=== PATIENT | male | born 1950 | race Caucasian/White ===

== ENCOUNTER 2022-09-06 07:42 | Inpatient (IN) | payer MEDICARE, MEDICAID, SELFPAY ==
[2022-09-06] VITALS (9 sets, daily range): BP systolic 103–160; BP diastolic 64–81; PULSE 55–96; RESP 16–22; TEMP 36.6–37.8; O2SAT 90–96; BMI 27.5
--- NOTE | 2022-09-06 08:08 | PC.NURSE ---
alert to self. respirations equal but slightly labored with bilateral clear sounds.pt skins pink, warm and dry. pt had unwitnessed fall at home with unkown LOC, pt is reporting pain in his left leg.
--- NOTE | 2022-09-06 08:14 | ED.FALL ---
HPI - Fall General Chief Complaint: Fall Stated Complaint: Fall found on floor, SOB, AMS Time Seen by Provider: 09/06/22 08:08 Source: patient, EMS, RN notes reviewed and old records reviewed Mode of arrival: EMS History of Present Illness HPI Narrative: 71-year-old male with a past medical history of COPD, dementia, HLD, HTN, presenting to the ED via EMS for on unwitnessed fall at home. Per EMS patient was gasping for air on their arrival with reported dry cough. Patient guarding to LLE. Patient on ASA, no other listed anticoagulation. History limited due to patient's baseline dementia. Called family however unable to contact MD complaint: fall Related Data Home Medications Medication Instructions Recorded Confirmed amlodipine 5 mg tablet 5 mg PO DAILY 09/06/22 09/06/22 aspirin 81 mg tablet,delayed 81 mg PO DAILY 09/06/22 09/06/22 release atorvastatin 20 mg tablet 20 mg PO DAILY 09/06/22 09/06/22 cefpodoxime 200 mg tablet 200 mg PO BID 09/06/22 09/06/22 cholecalciferol (vitamin D3) 25 25 mcg PO DAILY 09/06/22 09/06/22 mcg (1,000 unit) tablet donepezil 10 mg tablet 10 mg PO BEDTIME 09/06/22 09/06/22 mirtazapine 30 mg tablet 30 mg PO BEDTIME 09/06/22 09/06/22 multivitamin 1 tab PO DAILY 09/06/22 09/06/22 quetiapine 50 mg tablet 50 mg PO TID@1100,1900,2300 09/06/22 09/06/22 vitamin B complex 1 cap PO DAILY 09/06/22 09/06/22 Allergies Allergy/AdvReac Type Severity Reaction Status Date / Time No Known Allergies Allergy Verified 09/06/22 08:31 Review of Systems Review of Systems: ROS limited due to patients baseline mental status Yes all other systems are reviewed and are negative Constitutional: Constitutional: Reports as per [facility] Past Medical History Attestation statement: The following information was validated with the patient. Source: old records reviewed Medical History COPD (chronic obstructive pulmonary disease) Dementia High cholesterol Hypertension Social History Social History Alcohol intake: unknown Use of substances other than those prescribed or required for medical reasons: Unable to respond Advance Directives: No Advance Directives Information Provided: Yes Physical Exam Vital Signs: Vital Signs: Last Vital Signs Temp 98.8 F 09/06/22 07:44 Pulse 91 09/06/22 11:09 Resp 22 H 09/06/22 11:09 BP 108/77 09/06/22 11:09 Pulse Ox 93 09/06/22 11:09 O2 Del Method Room Air 09/06/22 11:09 BMI result Body Mass Index 27.5 Const: General: cooperative, no acute distress and alert Limitations: no limitations HEENT: Head: Yes normal to inspection, Yes atraumatic, No Hooks's sign and No raccoon eyes Ears: hearing grossly normal bilaterally General nose exam: Normal external nose present Face and sinus: Yes normal facial exam Eyes: General: appearance normal, both eyes and all related structures Pupils: Equal, round and reactive pupils present EOM: EOMs intact bilaterally Neck: Neck: Yes normal visual inspection and Yes no meningeal signs Resp: Effort & Inspection: normal respiratory effort and no respiratory distress Auscultation: clear to auscultation bilaterally and no wheezes Cardio: Rate: regular rate Heart sounds: S1 normal heart sound present and S2 normal heart sound present GI: Inspection: Yes normal to inspection Palpation (GI): Soft to palpation, nontender, no guarding and not rigid Back/Spine/Pelvis: Other: No midline cervical/thoracic/lumbar spinous tenderness/step-off or deformity Skin: Rashes: no rashes Wounds: no wounds Neuro: General: tone normal and no meningeal signs Cranial nerves: Yes Equal, round and reactive pupils present Extrem: General: Yes normal to inspection Course Course Course Narrative: -939--Spoke w/son and (Paige-CHARLOTTE) admit at baseline patient can walk independently without assistance in the household. Patient was recently admitted to [facility] after fall onto left knee and noted to have UTI which required IV antibiotics. Son reports patient was agitated and restrained during hospital stay at [facility]. Was discharged on Monday 09/04 with Cefpodoxime which patient is still taking. Son states patient has been increasingly agitated, had unwitnessed fall on the floor off of couch this morning, was aided off the ground with son/mother, noted to be SOB/wheezing which prompted ED visit today. Son also reports patient had Schaeffer catheter at [facility] due to possible retention. -1107--no leukocytosis. H&H stable. Labs otherwise reassuring. Initial troponin 5.3 >will obtain [address] head/brain wo IV con IMPRESSION: Small petechial hemorrhage contusion high left frontal lobe. Generalized atrophy. Microangiopathy. >1109--will consult Neurology. Case discussed with Dr. Hairston recommended stopping ASA, and admission for observation CT cervical spine wo IV con IMPRESSION: No acute cervical spine fracture. Cervical spondylosis as described.? Fleischner guidelines were followed. XR knee LT 3V IMPRESSION: No significant bony abnormality of the left knee identified. Probable small suprapatellar effusion. XR hip BI w PEL1V IMPRESSION: RIGHT HIP: No acute abnormality. LEFT HIP: No acute abnormality. PELVIC BONE AND JOINTS: Unremarkable. Degenerative changes incidentally noted in the partially visualized lumbosacral spine. XR chest 1V IMPRESSION: Exam is limited as the patient could not be positioned for standard frontal projection. No definite acute abnormality consider follow-up radiograph if patient continues to be symptomatic and can tolerate standard positioning >1140--patient admitted to hospitalist for further management Medications Administered Discontinued Medications Generic Name Dose Route Start Last Admin Trade Name Freq PRN Reason Stop Dose Admin Albuterol/Ipratropium 3 ml 09/06/22 08:31 09/06/22 09:37 Albuterol/Iprat 2.5/0.5mg 3 Ml Ampul.Neb INHALE 09/06/22 08:32 3 ml ONCE ONE Administration Quetiapine Fumarate 25 mg 09/06/22 09:53 09/06/22 10:00 Quetiapine Fumarate 25 Mg Tablet PO 09/06/22 09:54 25 mg ONCE ONE Administration Medical Decision Making Medical Decision Making MDM Narrative: 71-year-old male with a past medical history of COPD, dementia, HLD, HTN, presenting to the ED via EMS for on unwitnessed fall at home. On exam sleeping comfortably, easily arousable, baseline dementia, satting 89-92% on RA, lungs CTA, no evidence of trauma, no midline spinous tenderness. Concern for mechanical fall vs ICH vs fracture vs metabolic or infectious etiology. Lower suspicion for CVA. Attempted to contact family for history however unsuccessful Plan: EKG, labs, UA, head/C-spine CT, x-rays, reassess Please refer to course for remaining clinical decision making, interpretation of labs/imaging results, and discussions with consultants and/or family members. Differential Diagnosis Differential Diagnoses: The differential diagnosis associated with the presentation includes As above Admission/Observation Consideration of admission/observation: Escalation of care including admission/observation considered Consult Healthcare Provider Management of the patient was discussed with: Hospitalist and [employer] (neurology) Lab Data MDM Lab Attestation statement: I reviewed the patient's lab results. 09/06/22 09:29 09/06/22 09:29 Labs: Lab Results 09/06/22 09/06/22 09/06/22 Range/Units 09:29 09:29 09:29 WBC 8.8 (4.8-10.8) X10*3/uL RBC 4.31 L (4.60-5.80) X10*6/uL Hgb 13.0 L (14.0-18.0) g/dl Hct 39.4 L (42.0-52.0) % MCV 91.4 (80.0-98.0) fL MCH 30.2 (27.0-33.0) pg MCHC 33.0 (31.0-36.0) g/dl RDW 13.3 (11.0-16.0) % Plt Count 236 (160-400) X10*3/uL MPV 9.7 (9.4-12.4) fL Immature Gran % (Auto) 0.7 H (0.0-0.4) % Neut % (Auto) 75.3 H (45-73) % Lymph % (Auto) 14.0 L (20-40) % Leake % (Auto) 6.6 (2-11) % Eos % (Auto) 2.8 (0-4) % Baso % (Auto) 0.6 (0-2) % Lymph # (Auto) 1.2 (1.2-4.9) X10*3/uL Leake # (Auto) 0.6 (0.1-1.2) X10*3/uL Eos # (Auto) 0.3 (0.0-0.4) X10*3/uL Baso # (Auto) 0.1 (0.0-0.2) X10*3/uL Abs Immat Gran (auto) 0.06 H (0.00-0.03) X10*3/uL Absolute Neuts (auto) 6.6 (2.0-8.3) x10*3/uL Absolute Nucleated RBC 0.000 (0.0-0.012) X10*3/uL Nucleated RBC % (auto) 0.0 (0.0-0.2) /100WBC PT 14.2 H (10.0-13.1) SEC INR 1.2 H (0.9-1.1) Sodium (135-145) mmol/L Potassium (3.3-5.1) mmol/L Chloride (96-108) mmol/L Carbon Dioxide (22-29) mmol/L Anion Gap (12-20) BUN (9-16) mg/dL Creatinine (0.5-1.4) mg/dL Estim Creat Clear Calc Estimated GFR Random Glucose (60-115) mg/dL Calcium (8.4-10.2) mg/dL Magnesium (1.6-2.6) mg/dL Total Bilirubin (0.0-1.0) mg/dL Direct Bilirubin (0.0-0.5) mg/dL AST (5-37) U/L ALT (0-40) U/L Alkaline Phosphatase (39-117) U/L Ammonia 25 (13-55) umol/L Troponin I High Sens (<3.5-35.0) ng/L B-Natriuretic Peptide (<100) pg/mL Total Protein (6.5-8.0) g/dL Albumin (3.5-5.0) g/dL Lipase (8-78) U/L COVID-19 ([facility]) (Negative) COVID-19 Clin Com 09/06/22 09/06/22 09/06/22 Range/Units 09:29 09:29 09:29 WBC (4.8-10.8) X10*3/uL RBC (4.60-5.80) X10*6/uL Hgb (14.0-18.0) g/dl Hct (42.0-52.0) % MCV (80.0-98.0) fL MCH (27.0-33.0) pg MCHC (31.0-36.0) g/dl RDW (11.0-16.0) % Plt Count (160-400) X10*3/uL MPV (9.4-12.4) fL Immature Gran % (Auto) (0.0-0.4) % Neut % (Auto) (45-73) % Lymph % (Auto) (20-40) % Leake % (Auto) (2-11) % Eos % (Auto) (0-4) % Baso % (Auto) (0-2) % Lymph # (Auto) (1.2-4.9) X10*3/uL Leake # (Auto) (0.1-1.2) X10*3/uL Eos # (Auto) (0.0-0.4) X10*3/uL Baso # (Auto) (0.0-0.2) X10*3/uL Abs Immat Gran (auto) (0.00-0.03) X10*3/uL Absolute Neuts (auto) (2.0-8.3) x10*3/uL Absolute Nucleated RBC (0.0-0.012) X10*3/uL Nucleated RBC % (auto) (0.0-0.2) /100WBC PT (10.0-13.1) SEC INR (0.9-1.1) Sodium 145 (135-145) mmol/L Potassium 3.9 (3.3-5.1) mmol/L Chloride 107 (96-108) mmol/L Carbon Dioxide 28 (22-29) mmol/L Anion Gap 14 (12-20) BUN 14 (9-16) mg/dL Creatinine 0.79 (0.5-1.4) mg/dL Estim Creat Clear Calc 84.2 Estimated GFR > 60 Random Glucose 90 (60-115) mg/dL Calcium 9.7 (8.4-10.2) mg/dL Magnesium 2.4 (1.6-2.6) mg/dL Total Bilirubin 0.4 (0.0-1.0) mg/dL Direct Bilirubin 0.1 (0.0-0.5) mg/dL AST 31 (5-37) U/L ALT 26 (0-40) U/L Alkaline Phosphatase 78 (39-117) U/L Ammonia (13-55) umol/L Troponin I High Sens 5.3 (<3.5-35.0) ng/L B-Natriuretic Peptide 13 (<100) pg/mL Total Protein 6.8 (6.5-8.0) g/dL Albumin 4.1 (3.5-5.0) g/dL Lipase 48 (8-78) U/L COVID-19 ([facility]) (Negative) COVID-19 Clin Com 09/06/22 Range/Units 09:29 WBC (4.8-10.8) X10*3/uL RBC (4.60-5.80) X10*6/uL Hgb (14.0-18.0) g/dl Hct (42.0-52.0) % MCV (80.0-98.0) fL MCH (27.0-33.0) pg MCHC (31.0-36.0) g/dl RDW (11.0-16.0) % Plt Count (160-400) X10*3/uL MPV (9.4-12.4) fL Immature Gran % (Auto) (0.0-0.4) % Neut % (Auto) (45-73) % Lymph % (Auto) (20-40) % Leake % (Auto) (2-11) % Eos % (Auto) (0-4) % Baso % (Auto) (0-2) % Lymph # (Auto) (1.2-4.9) X10*3/uL Leake # (Auto) (0.1-1.2) X10*3/uL Eos # (Auto) (0.0-0.4) X10*3/uL Baso # (Auto) (0.0-0.2) X10*3/uL Abs Immat Gran (auto) (0.00-0.03) X10*3/uL Absolute Neuts (auto) (2.0-8.3) x10*3/uL Absolute Nucleated RBC (0.0-0.012) X10*3/uL Nucleated RBC % (auto) (0.0-0.2) /100WBC PT (10.0-13.1) SEC INR (0.9-1.1) Sodium (135-145) mmol/L Potassium (3.3-5.1) mmol/L Chloride (96-108) mmol/L Carbon Dioxide (22-29) mmol/L Anion Gap (12-20) BUN (9-16) mg/dL Creatinine (0.5-1.4) mg/dL Estim Creat Clear Calc Estimated GFR Random Glucose (60-115) mg/dL Calcium (8.4-10.2) mg/dL Magnesium (1.6-2.6) mg/dL Total Bilirubin (0.0-1.0) mg/dL Direct Bilirubin (0.0-0.5) mg/dL AST (5-37) U/L ALT (0-40) U/L Alkaline Phosphatase (39-117) U/L Ammonia (13-55) umol/L Troponin I High Sens (<3.5-35.0) ng/L B-Natriuretic Peptide (<100) pg/mL Total Protein (6.5-8.0) g/dL Albumin (3.5-5.0) g/dL Lipase (8-78) U/L COVID-19 ([facility]) Negative (Negative) COVID-19 Clin Com See Note Independent Interpretation I performed an independent interpretation of an: EKG (EKG normal sinus rhythm with sinus arrhythmia and incomplete right bundle branch block. Rate of 72. QRS 102. Inverted T-wave in V1. No STEMI) and Plain X-Ray Radiology Impression Discussion of test interpretation with radiology: I have reviewed the radiologist's reading. Independent Historian Clinical information obtained from an independent historian. History obtained from or confirmed by: EMS and Other (son & ) External Record Review External record reviewed: Inpatient record, Office record, Outpatient record, Prior outpatient labs, Prior outpatient radiology, Primary care record and Outside ED record Tests considered The following testing was considered but not selected: As above Prescription Management I considered prescription management with: Pain Medication Chronic Conditions Patient?s care impacted by: Other (Dementia) Discharge Plan Discharge Clinical Impression: Focal hemorrhagic contusion of cerebrum, Fall, Alzheimer's dementia Patient Disposition: Admitted As Inpatient
--- NOTE | 2022-09-06 10:05 | PC.NURSE ---
pt has slight agitation so there is a delay with the ekg and urinalysis, pt has been medicated with his usual at home med.
--- NOTE | 2022-09-06 10:27 | PHA.MEDREC ---
Pharmacy Consult ? Medication Reconciliation Pharmacy has completed the medication reconciliation. Patient had a list at bedside
--- NOTE | 2022-09-06 10:53 | PC.NURSE ---
able to get bladder scan which showed 48ml, provider aware.
--- NOTE | 2022-09-06 11:59 | PC.NURSE ---
Straight cath done with 170ml with a large amount of incontinence. provider notified.
--- NOTE | 2022-09-06 13:37 | PM.IMHP ---
History of Present Illness Date of Service: 09/06/22 Attending physician on admission: Mateus Peoples Chief Complaint: fall 71-year-old male with a past medical history of COPD, Alzheimer's dementia, HLD, HTN, presenting to the ED via EMS for on unwitnessed fall at home. He lives at home with his , Paige, and son, Andrew who assist with his care. There is also a home health aide in the home who assists his life as well as the patient. This morning, his family reports that he was in the bathroom and they heard a loud sound as patient had fallen and called EMS. According to EMS report, the patient was gasping for air on arrival with reported dry cough and was guarding the left lower extremity. He is on aspirin but no anticoagulants. Per family, the patient was recently admitted to [facility] for UTI and treated with 5 days of IV antibiotics and was discharged 2 days ago on oral cefpodoxime. Did not receive dose this morning. Per the family report, the patient has had increased agitation over the last 2 months with question of acute delirium versus worsening Alzheimer's dementia. He did briefly improved with increased dose of Seroquel to 25 mg t.i.d. by his PCP but over the last 1.5 weeks has again had increased agitation and has not been able to ambulate independently which is his baseline. Per family he has been on wait list for [facility] memory unit since 11/27. They are willing to take him home if patient is ambulatory. On arrival, vital stable. There is no leukocytosis. H/H 13.0/39.4%. Renal function normal, electrolyte levels normal. Urinalysis was 1+ leukocytes, negative nitrites, negative blood, slight urinary sediment, negative bacteria. Negative for COVID-19. Chest x-ray without any definitive acute abnormality but limited exam given patient positioning. X-ray of the hip/pelvis without any acute abnormality but does show degenerative changes. X-ray of the left knee negative for acute abnormality. Cervical spine CT negative for any acute fracture subluxation which shows multilevel cervical spondylosis. Head CT shows small petechial hemorrhage contusion in the hive left frontal lobe as well as generalized atrophy and microangiopathy. ED did discuss case with Neurology recommending admission and holding aspirin. Review of Systems Review of Systems: Yes Unobtainable due to mental status PMF Medical History Alzheimer's dementia COPD (chronic obstructive pulmonary disease) High cholesterol Hypertension Social History Alcohol intake: unknown Use of substances other than those prescribed or required for medical reasons: Unable to respond Advance Directives: No Advance Directives Information Provided: Yes Meds Allergies Allergy/AdvReac Type Severity Reaction Status Date / Time No Known Allergies Allergy Verified 09/06/22 08:31 Active Medications: Current Medications Acetaminophen (Acetaminophen 325 Mg Tablet) 650 mg PO Q6H PRN PRN Reason: Pain, Mild (Pain Scale 1-3) Docusate Sodium (Docusate Sodium 100 Mg Capsule) 100 mg PO DAILY PRN PRN Reason: Constipation Ondansetron HCl (Ondansetron Hcl 4 Mg/2 Ml Vial) 4 mg IVPUSH Q8H PRN PRN Reason: Nausea and Vomiting Sodium Chloride (0.9 % Sodium Chloride Flush 3 Ml Syringe) 3 ml [facility] Medications Medication Instructions Recorded Confirmed Last Taken Type amlodipine 5 mg tablet 5 mg PO DAILY 09/06/22 09/06/22 Unknown History aspirin 81 mg tablet,delayed 81 mg PO DAILY 09/06/22 09/06/22 Unknown History release atorvastatin 20 mg tablet 20 mg PO DAILY 09/06/22 09/06/22 Unknown History cefpodoxime 200 mg tablet 200 mg PO BID 09/06/22 09/06/22 Unknown History cholecalciferol (vitamin D3) 25 25 mcg PO DAILY 09/06/22 09/06/22 Unknown History mcg (1,000 unit) tablet donepezil 10 mg tablet 10 mg PO BEDTIME 09/06/22 09/06/22 Unknown History mirtazapine 30 mg tablet 30 mg PO BEDTIME 09/06/22 09/06/22 Unknown History multivitamin 1 tab PO DAILY 09/06/22 09/06/22 Unknown History quetiapine 50 mg tablet 50 mg PO TID@1100,1900,2300 09/06/22 09/06/22 Unknown History vitamin B complex 1 cap PO DAILY 09/06/22 09/06/22 Unknown History Physical Exam Vital Signs and Narrative: Vital Signs: Last Vital Signs Temp 98.8 F 09/06/22 07:44 Pulse 91 09/06/22 11:09 Resp 22 H 09/06/22 11:09 BP 108/77 09/06/22 11:09 Pulse Ox 93 09/06/22 11:09 O2 Del Method Room Air 09/06/22 11:09 BMI result Body Mass Index 27.5 Constitutional - Awake and Alert, No apparent distress Eyes - PERRLA, EOMI Cardiovascular - S1S2, RRR, No edema Respiratory - Normal lung expansion, Normal respiratory effort, No respiratory distress, CTA bilaterally Gastrointestinal - NT / ND; +BS; No rebound or guarding Extremities - no calf tenderness bilaterally, no swelling. Nontender to palpation with appropriate passive ROM LE joints Skin - Warm/Dry Neurological - Alert & disoriented, speaking nonsensically, moving all extremities independently Results Labs 09/06/22 09:29 09/06/22 09:29 Labs: Laboratory Results - last 24 hr 09/06/22 09/06/22 09/06/22 09:29 09:29 09:29 MCV 91.4 MCH 30.2 MCHC 33.0 RDW 13.3 Plt Count 236 MPV 9.7 Immature Gran % (Auto) 0.7 H Neut % (Auto) 75.3 H Lymph % (Auto) 14.0 L Maverick % (Auto) 6.6 Eos % (Auto) 2.8 Baso % (Auto) 0.6 Lymph # (Auto) 1.2 Maverick # (Auto) 0.6 Eos # (Auto) 0.3 Baso # (Auto) 0.1 Abs Immat Gran (auto) 0.06 H Absolute Neuts (auto) 6.6 Absolute Nucleated RBC 0.000 Nucleated RBC % (auto) 0.0 PT 14.2 H INR 1.2 H Anion Gap Estim Creat Clear Calc Estimated GFR Random Glucose Calcium Magnesium Total Bilirubin Direct Bilirubin AST ALT Alkaline Phosphatase Ammonia 25 Troponin I High Sens B-Natriuretic Peptide Total Protein Albumin Lipase Urine Color Urine Appearance Urine pH Ur Specific Dawson Urine Protein Urine Glucose (UA) Urine Ketones Urine Blood Urine Nitrite Ur Leukocyte Esterase Urine RBC Urine WBC Ur Squamous Epith Cells Urine Bacteria Hyaline Casts COVID-19 ([facility]) COVID-19 Clin Com 09/06/22 09/06/22 09/06/22 09:29 09:29 09:29 MCV MCH MCHC RDW Plt Count MPV Immature Gran % (Auto) Neut % (Auto) Lymph % (Auto) Maverick % (Auto) Eos % (Auto) Baso % (Auto) Lymph # (Auto) Maverick # (Auto) Eos # (Auto) Baso # (Auto) Abs Immat Gran (auto) Absolute Neuts (auto) Absolute Nucleated RBC Nucleated RBC % (auto) PT INR Anion Gap 14 Estim Creat Clear Calc 84.2 Estimated GFR > 60 Random Glucose 90 Calcium 9.7 Magnesium 2.4 Total Bilirubin 0.4 Direct Bilirubin 0.1 AST 31 ALT 26 Alkaline Phosphatase 78 Ammonia Troponin I High Sens 5.3 B-Natriuretic Peptide 13 Total Protein 6.8 Albumin 4.1 Lipase 48 Urine Color Urine Appearance Urine pH Ur Specific Dawson Urine Protein Urine Glucose (UA) Urine Ketones Urine Blood Urine Nitrite Ur Leukocyte Esterase Urine RBC Urine WBC Ur Squamous Epith Cells Urine Bacteria Hyaline Casts COVID-19 ([facility]) COVID-19 Clin Com 09/06/22 09/06/22 09/06/22 09:29 11:59 12:57 MCV MCH MCHC RDW Plt Count MPV Immature Gran % (Auto) Neut % (Auto) Lymph % (Auto) Maverick % (Auto) Eos % (Auto) Baso % (Auto) Lymph # (Auto) Maverick # (Auto) Eos # (Auto) Baso # (Auto) Abs Immat Gran (auto) Absolute Neuts (auto) Absolute Nucleated RBC Nucleated RBC % (auto) PT INR Anion Gap Estim Creat Clear Calc Estimated GFR Random Glucose Calcium Magnesium Total Bilirubin Direct Bilirubin AST ALT Alkaline Phosphatase Ammonia Troponin I High Sens 6.3 B-Natriuretic Peptide Total Protein Albumin Lipase Urine Color Yellow Urine Appearance Clear Urine pH 7.0 Ur Specific Dawson 1.010 Urine Protein Negative Urine Glucose (UA) Negative Urine Ketones Negative Urine Blood Negative Urine Nitrite Negative Ur Leukocyte Esterase Small (1+) H Urine RBC 3-5 H Urine WBC 6-10 H Ur Squamous Epith Cells 3-5 Urine Bacteria None Seen Hyaline Casts 0-2 COVID-19 ([facility]) Negative COVID-19 Clin Com See Note Imaging Radiologist's Impressions: Impressions Chest X-Ray 09/06/22 08:51 IMPRESSION: Exam is limited as the patient could not be positioned for standard frontal projection. No definite acute abnormality consider follow-up radiograph if patient continues to be symptomatic and can tolerate standard positioning Hip/Pelvis X-Ray 09/06/22 08:51 IMPRESSION: RIGHT HIP: No acute abnormality. LEFT HIP: No acute abnormality. PELVIC BONE AND JOINTS: Unremarkable. Degenerative changes incidentally noted in the partially visualized lumbosacral spine. Knee X-Ray 09/06/22 08:51 IMPRESSION: No significant bony abnormality of the left knee identified. Probable small suprapatellar effusion. Cervical Spine CT 09/06/22 09:47 IMPRESSION: No acute cervical spine fracture. Cervical spondylosis as described. Fleischner guidelines were followed. Head CT 09/06/22 09:47 IMPRESSION: Small petechial hemorrhage contusion high left frontal lobe. Generalized atrophy. Microangiopathy. Assessment and Plan (1) Focal hemorrhagic contusion of cerebrum: Status: Acute (2) Fall: Status: Acute Plan 71-year-old male with a past medical history of COPD, Alzheimer's dementia, HLD, HTN admitted for further monitoring of petechial hemorrhage of the left high frontal lobe likely requiring placement. # acute petechial hemorrhage of the left high frontal lobe -hold aspirin -neurochecks q.2h -neurology consult -repeat head CT a.m. # unwitnessed fall -likely mechanical, but unclear -head injury as above, no loss of consciousness -imaging of the hips bilaterally, left knee negative for fracture, patient moving extremities independently - EKG reassuring. Renal function and electrolytes unremarkable, ongoing treatment for UTI, no evidence of further acute infection -monitor on telemetry -PT eval #Acute UTI -treated with iv abx x 5 days at [facility], discharged 09/04 -Continue oral abx x 5 days -UA appears reassruing, culture pending # COPD -no acute exacerbation -albuterol p.r.n. # hypertension -BP reasonably controlled -continue home meds # HLD -continue statin # Alzheimer's dementia -discussed baseline mentation with family. Has had increased agitation ongoing 2 months, question related to Alzheimer's versus infection -continue home meds -currently on wait list for [facility] memory unit DVT prophylaxis- SCPs Full code-discussed with family HCP- , Paige. SonAndrew ([phone]) Patient requires inpatient stay of at least 2 midnights for further monitoring of acute petechial hemorrhage of the left high frontal lobe following unwitnessed fall requiring serial neuro checks, repeat head CT, expert consultation and will likely need placement pending PT eval. Per family, they are agreeable to taking home gift ambulating independently but has been unable to do so x 1.5w. Time Spent With Patient Time: Total time managing care of this patient today ____ minutes. Quality Stroke Does the patient have a stroke diagnosis?: No VTE Prior VTE?: No VTE Risk Level:: Medical - moderate - high VTE Device Contraindication: N/A - Device Ordered VTE Drug Contraindication: Treatment Not Indicated
--- NOTE | 2022-09-06 14:25 | PC.NURSE ---
called [facility] for report awaiting a call back
--- NOTE | 2022-09-06 15:01 | PC.NURSE ---
report given to [facility] rn
[2022-09-07 03:57] VITALS: BP 154/69; PULSE 58; RESP 16; TEMP 36.8; O2SAT 94
--- NOTE | 2022-09-07 06:14 | PC.NURSE ---
pts heart rate dropping into 30's-40's bp-154/69 notified.
--- NOTE | 2022-09-07 06:37 | PM.EVENT ---
Event Note Date of Service: 09/07/22 Event Note: Patient noted to be bradycardic with a heart rate in the 30s and 40s, while sleeping. Asymptomatic. Not on any beta-blockers Time Spent With Patient Time: Total time managing care of this patient today ____ minutes.
[2022-09-07 07:42] VITALS: BP 138/68; PULSE 50; RESP 16; TEMP 36.5; O2SAT 93
[2022-09-07 07:46] LABS: MANUAL DIFF FLAG NO
[2022-09-07 07:51] LABS: Basophils Percent Auto 0.4 % (0-2); Eosinophils Absolute Auto 0.2 X10*3/uL (0.0-0.4); Eosinophils Percent Auto 2.9 % (0-4); Hemoglobin 12.2 g/dl (14.0-18.0); Imm Gran Abs Auto 0.05 X10*3/uL (0.00-0.03); Imm Gran Pct Auto 0.6 % (0.0-0.4); Lymphocytes Absolute Auto 1.4 X10*3/uL (1.2-4.9); Lymphocytes Percent Auto 17.8 % (20-40); Mean Corpuscular Hemoglobin 30.6 pg (27.0-33.0); Mean Corpuscular Volume 92.7 fL (80.0-98.0); Mean Platelet Volume 9.9 fL (9.4-12.4); Monocytes Absolute Auto 0.7 X10*3/uL (0.1-1.2); Monocytes Percent Auto 9.1 % (2-11); Neutrophils Absolute Auto 5.4 x10*3/uL (2.0-8.3); Neutrophils Percent Auto 69.2 % (45-73); Platelet Count 239 X10*3/uL (160-400); Red Blood Count 3.99 X10*6/uL (4.60-5.80); Red Cell Distribution Width 13.3 % (11.0-16.0); White Blood Count 7.9 X10*3/uL (4.8-10.8)
[2022-09-07 08:09] LABS: Anion Gap 13 (12-20); Blood Urea Nitrogen 15 mg/dL (9-16); Calcium 9.5 mg/dL (8.4-10.2); Carbon Dioxide 29 mmol/L (22-29); Chloride 106 mmol/L (96-108); Creatinine Clr Calc Pharmacy 84.2; Estimated Glomerular Filt Rate > 60; Glucose Random 95 mg/dL (60-115); Potassium 3.8 mmol/L (3.3-5.1); Sodium 144 mmol/L (135-145)
--- NOTE | 2022-09-07 09:34 | MHC.CM.PN ---
Addendum entered by Nicolette Louis 09/07/22 09:45: HCP/SPOUSE ADAM CELL PHONE: [phone] Original Note: IMM EXPLAINED TO SON GERTRUDIS VIA TELEPHONE. HE REQUESTS WHITE COPY TO BE MAILED TO HIS HOME. YELLOW COPY PLACED IN CHART. PT LIVES WITH SPOUSE IN SON'S HOME. /SON CAREGIVERS WITH PRIVATE PA[employer] 4 HOURS/DAY/6 DAYS[facility]PER SON, PT IS ON A WAITING LIST FOR [facility]. HE IS FOLLOWED BY [facility] ON AN OP BASIS (DR. BATRES [phone]) PT WAS AMBULATING INDEP UNTIL 2 WEEKS AGO (HOSPITALIZED WITH UTI AT [facility]) SON AND NOW ASSIST. PER SON, HE HAS SUNDOWNING FROM ABOUT 3 PM TO 8 PM. + HCP, SON WILL BRING IN COPY + GRAHAM VAX X [address] PETERS AT [facility]. MAY NEED PLACEMENT PENDING P.T. EVAL FIRST CHOICE IS [facility]. IF DOES NOT GO TO SNF, SON IS ABLE TO TRANSPORT HOME. CM WILL CONTINUE TO FOLLOW FOR ANY CHANGE IN DC PLAN/NEEDS
[2022-09-07 12:00] VITALS: BP 126/79; PULSE 50; RESP 18; TEMP 36.6; O2SAT 94
--- NOTE | 2022-09-07 14:32 | HO.PM.IMPN ---
Subjective Subjective Date of Service: 09/07/22 Interval History: remains confused and agitated. Unable to do CT Review of Systems unable to obtain Physical Exam Vital Signs: Vital Signs: Last Vital Signs Temp 97.8 F 09/07/22 12:00 Pulse 50 09/07/22 12:00 Resp 18 09/07/22 12:00 BP 126/79 09/07/22 12:00 Pulse Ox 94 09/07/22 12:00 O2 Del Method Room Air 09/07/22 12:00 BMI result Body Mass Index 27.5 Const: Other: awake confused Resp: Other: clear to auscultation bilaterally no rales rhonchi or wheezes Cardio: Other: no S4; positive S1-S2; no S3 murmurs rubs or gallops GI: Other: soft nontender nondistended normoactive bowel sounds Extrem: Other: no edema bilaterally Objective Data Active Medications Acetaminophen (Acetaminophen 325 Mg Tablet) 650 mg PO Q6H PRN PRN Reason: Pain, Mild (Pain Scale 1-3) Amlodipine Besylate (Amlodipine Besylate 5 Mg Tablet) 5 mg PO DAILY [facility]; Protocol Last Admin: 09/07/22 08:59 Dose: 5 mg Documented By: DEANDRE Atorvastatin Calcium (Atorvastatin Calcium 20 Mg Tablet) 20 mg PO DAILY [facility] Last Admin: 09/07/22 08:59 Dose: 20 mg Documented By: DEANDRE Cefuroxime Axetil (Cefuroxime Axetil 250 Mg Tablet) 250 mg PO BID [facility] Stop: 09/10/22 21:01 Last Admin: 09/07/22 08:59 Dose: 250 mg Documented By: DEANDRE Docusate Sodium (Docusate Sodium 100 Mg Capsule) 100 mg PO DAILY PRN PRN Reason: Constipation Donepezil HCl (Donepezil Hcl 10 Mg Tablet) 10 mg PO BEDTIME [facility] Last Admin: 09/06/22 20:36 Dose: 10 mg Documented By: MUSTAPHA Mirtazapine (Mirtazapine 30 Mg Tablet) 30 mg PO BEDTIME [facility] Last Admin: 09/06/22 20:36 Dose: 30 mg Documented By: MUSTAPHA Multivitamins/Vitamin C (Multivitamin Tablet) 1 tab PO DAILY [facility] Last Admin: 09/07/22 08:59 Dose: 1 tab Documented By: DEANDRE Ondansetron HCl (Ondansetron Hcl 4 Mg/2 Ml Vial) 4 mg IVPUSH Q8H PRN PRN Reason: Nausea and Vomiting Quetiapine Fumarate (Quetiapine Fumarate 50 Mg Tablet) 50 mg PO TID@1100,1900,2300 [facility] Last Admin: 09/07/22 11:24 Dose: 50 mg Documented By: DEANDRE Sodium Chloride (0.9 % Sodium Chloride Flush 3 Ml Syringe) 3 ml IVFLUSH QSHIFT [facility] Last Admin: 09/07/22 08:59 Dose: 3 ml Documented By: DEANDRE Vitamin D (Cholecalciferol (Vitamin D3) 25 Mcg Tablet) 25 mcg PO DAILY [facility] Last Admin: 09/07/22 08:59 Dose: 25 mcg Documented By: DEANDRE Labs 09/07/22 07:42 09/07/22 07:42 Labs: Laboratory Results - last 24 hr 09/07/22 09/07/22 09/07/22 07:42 07:42 07:42 MCV 92.7 MCH 30.6 MCHC 33.0 RDW 13.3 Plt Count 239 MPV 9.9 Immature Gran % (Auto) 0.6 H Neut % (Auto) 69.2 Lymph % (Auto) 17.8 L [place] % (Auto) 9.1 Eos % (Auto) 2.9 Baso % (Auto) 0.4 Lymph # (Auto) 1.4 [place] # (Auto) 0.7 Eos # (Auto) 0.2 Baso # (Auto) 0.0 Abs Immat Gran (auto) 0.05 H Absolute Neuts (auto) 5.4 Absolute Nucleated RBC 0.000 Nucleated RBC % (auto) 0.0 Anion Gap 13 Estim Creat Clear Calc 84.2 Estimated GFR > 60 Random Glucose 95 Calcium 9.5 TSH 2.06 Microbiology Microbiology Results: Microbiology 09/06/22 Unknown Urine Culture - Preliminary Urine Catheterized - Straight Catheter No growth to date. Assessment and Plan (1) Focal hemorrhagic contusion of cerebrum: Status: Acute (2) Alzheimer's dementia: Status: Acute (3) COPD (chronic obstructive pulmonary disease): Status: Acute Plan 71-year-old male with a past medical history of COPD, Alzheimer's dementia, HLD, HTN admitted for further monitoring of petechial hemorrhage of the left high frontal lobe likely requiring placement. 1.Acute petechial hemorrhage of the left high frontal lobe -hold aspirin -neurology consult... Await input - unable to repeat head CT secondary to behavior.. 2.Acute UTI -treated with iv abx x 5 days at [facility], discharged 09/04 -Continue oral abx x 5 days -culture pending 3.COPD -no acute exacerbation -albuterol p.r.n. 4.Hypertension - acceptable control on current therapies - adjust as indicated 5.Alzheimer's dementia - likely natural progression of disease -continue home meds -currently on wait list for [facility] memory unit SCPs full code HCP- , Paige. Son, Andrew ([phone]) patient requires ongoing hospitalization to fully evaluate petechial hemorrhages a left frontal lobe Time Spent With Patient Time: Total time managing care of this patient today ____ minutes. Quality Stroke Does the patient have a stroke diagnosis?: No VTE Prior VTE?: No VTE Risk Level:: Medical - moderate - high VTE Device Contraindication: N/A - Device Ordered VTE Drug Contraindication: Treatment Not Indicated
[2022-09-07 15:28] VITALS: BP 115/67; PULSE 51; RESP 20; TEMP 36.1; O2SAT 96
[2022-09-07 19:18] VITALS: BP 129/58; PULSE 80; RESP 17; TEMP 36.9; O2SAT 95
[2022-09-07 23:13] VITALS: BP 100/53; PULSE 55; RESP 17; TEMP 36.4; O2SAT 95
[2022-09-08 03:20] VITALS: PULSE 75; RESP 16; TEMP 36.8; O2SAT 95
[2022-09-08 07:20] VITALS: BP 145/73; PULSE 70; RESP 18; TEMP 36.7; O2SAT 94
--- NOTE | 2022-09-08 09:27 | PM.NEUROCN ---
History of Present Illness Data of Consult Service Date: 09/08/22 Primary Care Provider: Unknown Physician HPI Reason for consult: Intracerebral hemorrhage 71 years old man with dementia living at home with his family apparently had a fall and was brought to hospital. There was no witnessing of any convulsion. His initial head CT revealed a small left frontal hyperdensity suggestive of intracerebral hemorrhage and he was admitted hospital. He was unable to provide any meaningful history per Review of Systems Review of Systems: Could not be done with him PMFSH Past Medical History Medical History (Updated 09/07/22 @ 14:38 by Mateus Peoples DO) Alzheimer's dementia COPD (chronic obstructive pulmonary disease) High cholesterol Hypertension Social History Social History Household Members: Family Unable to assess alcohol history related to: Unknown Alcohol intake: unknown Patient Tobacco Use Status: Tobacco use Unknown service: No Meds Allergies Allergy/AdvReac Type Severity Reaction Status Date / Time No Known Allergies Allergy Verified 09/06/22 08:31 Active Medications: Current Medications Acetaminophen (Acetaminophen 325 Mg Tablet) 650 mg PO Q6H PRN PRN Reason: Pain, Mild (Pain Scale 1-3) Last Admin: 09/08/22 02:40 Dose: 650 mg Amlodipine Besylate (Amlodipine Besylate 5 Mg Tablet) 5 mg PO DAILY [facility]; Protocol Last Admin: 09/08/22 08:59 Dose: 5 mg Atorvastatin Calcium (Atorvastatin Calcium 20 Mg Tablet) 20 mg PO DAILY [facility] Last Admin: 09/08/22 08:59 Dose: 20 mg Cefuroxime Axetil (Cefuroxime Axetil 250 Mg Tablet) 250 mg PO BID [facility] Stop: 09/10/22 21:01 Last Admin: 09/08/22 08:58 Dose: 250 mg Docusate Sodium (Docusate Sodium 100 Mg Capsule) 100 mg PO DAILY PRN PRN Reason: Constipation Donepezil HCl (Donepezil Hcl 10 Mg Tablet) 10 mg PO BEDTIME [facility] Last Admin: 09/07/22 20:29 Dose: 10 mg Mirtazapine (Mirtazapine 30 Mg Tablet) 30 mg PO BEDTIME [facility] Last Admin: 09/07/22 20:29 Dose: 30 mg Multivitamins/Vitamin C (Multivitamin Tablet) 1 tab PO DAILY [facility] Last Admin: 09/08/22 08:59 Dose: 1 tab Ondansetron HCl (Ondansetron Hcl 4 Mg/2 Ml Vial) 4 mg IVPUSH Q8H PRN PRN Reason: Nausea and Vomiting Quetiapine Fumarate (Quetiapine Fumarate 50 Mg Tablet) 50 mg PO TID@1100,1900,2300 [facility] Last Admin: 09/08/22 00:52 Dose: Not Given Sodium Chloride (0.9 % Sodium Chloride Flush 3 Ml Syringe) 3 ml IVFLUSH QSHIFT [facility] Last Admin: 09/08/22 08:54 Dose: Not Given Vitamin D (Cholecalciferol (Vitamin D3) 25 Mcg Tablet) 25 mcg PO DAILY [facility] Last Admin: 09/08/22 08:59 Dose: 25 mcg Home Medications Medication Instructions Recorded Confirmed Last Taken Type amlodipine 5 mg tablet 5 mg PO DAILY 09/06/22 09/06/22 Unknown History aspirin 81 mg tablet,delayed 81 mg PO DAILY 09/06/22 09/06/22 Unknown History release atorvastatin 20 mg tablet 20 mg PO DAILY 09/06/22 09/06/22 Unknown History cefpodoxime 200 mg tablet 200 mg PO BID 09/06/22 09/06/22 Unknown History cholecalciferol (vitamin D3) 25 25 mcg PO DAILY 09/06/22 09/06/22 Unknown History mcg (1,000 unit) tablet donepezil 10 mg tablet 10 mg PO BEDTIME 09/06/22 09/06/22 Unknown History mirtazapine 30 mg tablet 30 mg PO BEDTIME 09/06/22 09/06/22 Unknown History multivitamin 1 tab PO DAILY 09/06/22 09/06/22 Unknown History quetiapine 50 mg tablet 50 mg PO TID@1100,1900,2300 09/06/22 09/06/22 Unknown History vitamin B complex 1 cap PO DAILY 09/06/22 09/06/22 Unknown History Physical Exam Vital Signs: Vital Signs: Last Vital Signs Temp 98.1 F 09/08/22 07:20 Pulse 70 09/08/22 07:20 Resp 18 09/08/22 07:20 BP 145/73 H 09/08/22 07:20 Pulse Ox 94 09/08/22 07:20 O2 Del Method Room Air 09/08/22 07:20 BMI result Body Mass Index 27.5 Neuro: Other: Alert and awake talking to himself not comprehending and not following commands. Mild frontal reflexes including grasp and snout were noted. He was sitting with his body flexed down and using his hands to cover his mouth. He did not follow any commands. Results Labs 09/07/22 07:42 09/07/22 07:42 Labs: Head CT reveals severe cerebral atrophy and a small left frontal hyperdensity probably from contusion. Microbiology Microbiology Results: Microbiology 09/06/22 Unknown Urine Catheterized - Straight Catheter Urine Culture - Preliminary No growth to date. Assessment and Plan (1) Focal hemorrhagic contusion of cerebrum: Status: Acute 71 years old man with severe underlying dementia probably had a fall and a small left frontal contusion with no complication of seizure. No further intervention is needed. I recommend talking to the family and providing them realistic expectations from any illness he might suffered from. Because of severe nature of degenerative dementia, almost no intervention could be offered even if he had an indication such as intracerebral hemorrhage. Comfort measures are recommended Time Spent With Patient Time: Total time managing care of this patient today ____ minutes. Procedures Date of Service Date of Service: 09/08/22
--- NOTE | 2022-09-08 10:16 | HO.PM.IMPN ---
Subjective Subjective Date of Service: 09/08/22 Interval History: Unable to obtain meaningful history due to advanced dementia, no acute issues overnight. Review of Systems Unable to obtain due to dementia. Physical Exam Vital Signs: Vital Signs: Last Vital Signs Temp 98.1 F 09/08/22 07:20 Pulse 70 09/08/22 07:20 Resp 18 09/08/22 07:20 BP 145/73 H 09/08/22 07:20 Pulse Ox 94 09/08/22 07:20 O2 Del Method Room Air 09/08/22 07:20 BMI result Body Mass Index 27.5 Const: Other: Constitutional - r esting in bed in n o distress Anicter ic sclera Cardiova scular - regular r ate rhythm Respira tory - clear to au scultation bilater ally, no wheeze, n o crackles Gastroi ntestinal - abdome n soft nontender b owel sounds audibl e Extremities - no swelling. Skin - Warm/Dry Neurolo gical - Alert & di soriented, speakin g nonsensically, m oving all extremit ies Objective Data Active Medications Acetaminophen (Acetaminophen 325 Mg Tablet) 650 mg PO Q6H PRN PRN Reason: Pain, Mild (Pain Scale 1-3) Last Admin: 09/08/22 02:40 Dose: 650 mg Documented By: BOO Amlodipine Besylate (Amlodipine Besylate 5 Mg Tablet) 5 mg PO DAILY [facility]; Protocol Last Admin: 09/08/22 08:59 Dose: 5 mg Documented By: DEANDRE Atorvastatin Calcium (Atorvastatin Calcium 20 Mg Tablet) 20 mg PO DAILY [facility] Last Admin: 09/08/22 08:59 Dose: 20 mg Documented By: DEANDRE Cefuroxime Axetil (Cefuroxime Axetil 250 Mg Tablet) 250 mg PO BID [facility] Stop: 09/10/22 21:01 Last Admin: 09/08/22 08:58 Dose: 250 mg Documented By: DEANDRE Docusate Sodium (Docusate Sodium 100 Mg Capsule) 100 mg PO DAILY PRN PRN Reason: Constipation Donepezil HCl (Donepezil Hcl 10 Mg Tablet) 10 mg PO BEDTIME [facility] Last Admin: 09/07/22 20:29 Dose: 10 mg Documented By: BOO Mirtazapine (Mirtazapine 30 Mg Tablet) 30 mg PO BEDTIME [facility] Last Admin: 09/07/22 20:29 Dose: 30 mg Documented By: BOO Multivitamins/Vitamin C (Multivitamin Tablet) 1 tab PO DAILY [facility] Last Admin: 09/08/22 08:59 Dose: 1 tab Documented By: DEANDRE Ondansetron HCl (Ondansetron Hcl 4 Mg/2 Ml Vial) 4 mg IVPUSH Q8H PRN PRN Reason: Nausea and Vomiting Quetiapine Fumarate (Quetiapine Fumarate 50 Mg Tablet) 50 mg PO TID@1100,1900,2300 [facility] Last Admin: 09/08/22 00:52 Dose: Not Given Documented By: BOO Non-Admin Reason: Patient Asleep Sodium Chloride (0.9 % Sodium Chloride Flush 3 Ml Syringe) 3 ml IVFLUSH QSHIFT [facility] Last Admin: 09/08/22 08:54 Dose: Not Given Documented By: DEANDRE Non-Admin Reason: No Access Vitamin D (Cholecalciferol (Vitamin D3) 25 Mcg Tablet) 25 mcg PO DAILY [facility] Last Admin: 09/08/22 08:59 Dose: 25 mcg Documented By: DEANDRE Labs 09/07/22 07:42 09/07/22 07:42 Microbiology Microbiology Results: Microbiology 09/06/22 Unknown Urine Culture - Final Urine Catheterized - Straight Catheter No growth. Assessment and Plan (1) Focal hemorrhagic contusion of cerebrum: Status: Acute Plan 71-year-old male with a past medical history of COPD, Alzheimer's dementia, HLD, HTN admitted for further monitoring of petechial hemorrhage of the left high frontal lobe likely requiring placement. 1.Acute small left frontal hemorrhagic contusion/focal hemorrhagic confusion of cerebrum Likely due to fall, repeat CT head was attempted but patient unable tolerate the procedure despite Haldol and Ativan -seen by Neurology they recommend no further intervention , continue to hold aspirin x1 week Spoke with patient's son Andrew as well as patient Paige mora they both agreed for DNR DNI will change code status to DNR DNI 2.Acute UTI -treated with iv abx x 5 days at [facility], discharged 09/04 -Continue Ceftin 250 mg b.i.d.x day 2/5 days -urine culture neg 3.COPD -no acute exacerbation -albuterol p.r.n. 4.Hypertension - acceptable control on current therapies - adjust as indicated 5.Alzheimer's dementia - likely natural progression of disease -continue home meds -currently on wait list for [facility] memory unit SCPs HCP- , Paige. Andrew Pennington ([phone]) ?patient requires ongoing hospitalization for safe placement. Time Spent With Patient Time: Total time managing care of this patient today ____ minutes. Quality Stroke Does the patient have a stroke diagnosis?: No VTE Prior VTE?: No VTE Risk Level:: Medical - moderate - high VTE Device Contraindication: N/A - Device Ordered VTE Drug Contraindication: Treatment Not Indicated
[2022-09-08 11:22] VITALS: BP 132/79; PULSE 67; RESP 18; TEMP 36.6; O2SAT 94
[2022-09-08 15:55] VITALS: BP 125/91; PULSE 86; RESP 18; TEMP 37.1; O2SAT 94
[2022-09-08 19:25] VITALS: BP 138/84; PULSE 88; RESP 18; TEMP 37.3; O2SAT 93
[2022-09-09] VITALS (7 sets, daily range): BP systolic 118–143; BP diastolic 51–74; PULSE 62–76; RESP 15–20; TEMP 36.2–37.1; O2SAT 92–96
--- NOTE | 2022-09-09 10:26 | HO.PM.IMPN ---
Subjective Subjective Date of Service: 09/09/22 Interval History: confused Physical Exam Vital Signs: Vital Signs: Last Vital Signs Temp 97.8 F 09/09/22 08:00 Pulse 65 09/09/22 08:00 Resp 18 09/09/22 08:00 BP 143/71 H 09/09/22 08:00 Pulse Ox 94 09/09/22 08:00 O2 Del Method Room Air 09/09/22 08:00 BMI result Body Mass Index 27.5 Const: Other: Constitutional - r esting in bed in n o distress Anicter ic sclera Cardiova scular - regular r ate rhythm Respira tory - clear to au scultation bilater ally, no wheeze, n o crackles Gastroi ntestinal - abdome n soft nontender b owel sounds audibl e Extremities - no swelling. Skin - Warm/Dry Neurolo gical - Alert & di soriented, speakin g nonsensically, m oving all extremit ies Objective Data Active Medications Acetaminophen (Acetaminophen 325 Mg Tablet) 650 mg PO Q6H PRN PRN Reason: Pain, Mild (Pain Scale 1-3) Last Admin: 09/08/22 02:40 Dose: 650 mg Documented By: BOO Amlodipine Besylate (Amlodipine Besylate 5 Mg Tablet) 5 mg PO DAILY [facility]; Protocol Last Admin: 09/09/22 09:34 Dose: 5 mg Documented By: ESTHER Atorvastatin Calcium (Atorvastatin Calcium 20 Mg Tablet) 20 mg PO DAILY [facility] Last Admin: 09/09/22 09:34 Dose: 20 mg Documented By: ESTHER Cefuroxime Axetil (Cefuroxime Axetil 250 Mg Tablet) 250 mg PO BID [facility] Stop: 09/10/22 21:01 Last Admin: 09/09/22 09:34 Dose: 250 mg Documented By: ESTHER Docusate Sodium (Docusate Sodium 100 Mg Capsule) 100 mg PO DAILY PRN PRN Reason: Constipation Donepezil HCl (Donepezil Hcl 10 Mg Tablet) 10 mg PO BEDTIME [facility] Last Admin: 09/08/22 22:02 Dose: 10 mg Documented By: LAQUITA Mirtazapine (Mirtazapine 30 Mg Tablet) 30 mg PO BEDTIME [facility] Last Admin: 09/08/22 22:02 Dose: 30 mg Documented By: LAQUITA Multivitamins/Vitamin C (Multivitamin Tablet) 1 tab PO DAILY [facility] Last Admin: 09/09/22 09:34 Dose: 1 tab Documented By: ESTHER Ondansetron HCl (Ondansetron Hcl 4 Mg/2 Ml Vial) 4 mg IVPUSH Q8H PRN PRN Reason: Nausea and Vomiting Quetiapine Fumarate (Quetiapine Fumarate 50 Mg Tablet) 50 mg PO TID@1100,1900,2300 [facility] Last Admin: 09/09/22 09:37 Dose: 50 mg Documented By: ESTHER Sodium Chloride (0.9 % Sodium Chloride Flush 3 Ml Syringe) 3 ml IVFLUSH QSHIFT [facility] Last Admin: 09/09/22 09:35 Dose: 3 ml Documented By: ESTHER Vitamin D (Cholecalciferol (Vitamin D3) 25 Mcg Tablet) 25 mcg PO DAILY [facility] Last Admin: 09/09/22 09:34 Dose: 25 mcg Documented By: ESTHER Labs 09/07/22 07:42 09/07/22 07:42 Microbiology Microbiology Results: Microbiology 09/06/22 Unknown Urine Culture - Final Urine Catheterized - Straight Catheter No growth. Assessment and Plan (1) Focal hemorrhagic contusion of cerebrum: Status: Acute Plan 71-year-old male with a past medical history of COPD, Alzheimer's dementia, HLD, HTN, presented with fall admitted for further monitoring of petechial hemorrhage of the left high frontal lobe likely requiring placement. Acute small left frontal hemorrhagic contusion/focal hemorrhagic confusion of cerebrum Likely due to fall, repeat CT head was attempted but patient unable tolerate the procedure despite Haldol and Ativan seen by Neurology they recommend no further intervention , continue to hold aspirin x1 week Spoke with patient's son Andrew as well as patient Paige mora they both agreed for DNR DNI will change code status to DNR DNI Acute UTI treated with iv abx x 5 days at [facility], discharged 09/04 Continue Ceftin 250 mg b.i.d.x day 3/5 days urine culture neg COPD no acute exacerbation albuterol p.r.n. Hypertension amlodipine Alzheimer's dementia likely natural progression of disease continue aricept currently on wait list for [facility] unit SCPs HCP- , Paige. SonAndrew ([phone]) ?patient requires ongoing hospitalization for safe placement. Time Spent With Patient Time: Total time managing care of this patient today ____ minutes. Quality Stroke Does the patient have a stroke diagnosis?: No VTE Prior VTE?: No VTE Risk Level:: Medical - moderate - high VTE Device Contraindication: N/A - Device Ordered VTE Drug Contraindication: Treatment Not Indicated
--- NOTE | 2022-09-09 13:16 | MHC.CM.PN ---
Addendum entered by Laila Montana RN 09/09/22 14:11: CM RECEIVED BED OFFER FROM [facility], CM CONTACTED SON GERTRUDIS AT PT'S NUMBER AND GERTRUDIS REPORTS THEY HAD PREVIOUSLY TOURED [facility] AND WOULD LIKE TO ACCEPT BED OFFER, SNF UPDATED AND ANTIC D/C TOMORROW 09/10 AT 10AM VIA BLS. Original Note: EMR REVIEWED, CM ATTEMPTED TO CONTACT PT'S AT 1:05PM AT NUMBER ON FILE TO DISCUSS DISPO, O ANSWER AND DETAILED MESSAGE LEFT, PT ON WAIT LIST FOR [facility] HOWEVER THEY ARE UNABLE TO TAKE PT STR W/TRANSITION TO LTC, REFERRAL HAS BEEN EXPANDED AND CM CURRENTLY AWAITING BED OFFER, CM WILL CONT TO FOLLOW D/C NEEDS.
[2022-09-10 03:11] VITALS: BP 126/72; PULSE 54; RESP 15; TEMP 36.1; O2SAT 93
[2022-09-10 08:00] VITALS: BP 123/87; PULSE 76; RESP 20; TEMP 36.6; O2SAT 92
--- NOTE | 2022-09-10 08:40 | PM.DS ---
DS: Providers Provider Date of Service: 09/10/22 Date of admission: 09/06/22 13:31 Primary care physician: Chelsea Gonzalez MD Consults: 09/06/22 13:31 Consult to Neurology Routine Consulting Provider: [facility] Reason for consultation: Petechial hemorrhage frontal lobe DS: Diagnosis Discharge Diagnosis (1) Focal hemorrhagic contusion of cerebrum: Status: Acute DS: Summary Hospital Course Hospital Course: from initial hpi: 71-year-old male with a past medical history of COPD, Alzheimer's dementia, HLD, HTN, presenting to the ED via EMS for on unwitnessed fall at home.? He lives at home with his , Paige, and son, Andrew who assist with his care.? There is also a home health aide in the home who assists his life as well as the patient.? This morning, his family reports that he was in the bathroom and they heard a loud sound as patient had fallen and called EMS.? According to EMS report, the patient was gasping for air on arrival with reported dry cough and was guarding the left lower extremity.? He is on aspirin but no anticoagulants.? Per family, the patient was recently admitted to [facility] for UTI and treated with 5 days of IV antibiotics and was discharged 2 days ago on oral cefpodoxime.? Did not receive dose this morning.? Per the family report, the patient has had increased agitation over the last 2 months with question of acute delirium versus worsening Alzheimer's dementia.? He did briefly improved with increased dose of Seroquel to 25 mg t.i.d. by his PCP but over the last 1.5 weeks has again had increased agitation and has not been able to ambulate independently which is his baseline. Per family he has been on wait list for [facility] memory unit since 11/27. They are willing to take him home if patient is ambulatory. On arrival, vital stable.? There is no leukocytosis.? H/H 13.0/39.4%.? Renal function normal, electrolyte levels normal.? Urinalysis was 1+ leukocytes, negative nitrites, negative blood, slight urinary sediment, negative bacteria.? Negative for COVID-19.? Chest x-ray without any definitive acute abnormality but limited exam given patient positioning.? X-ray of the hip/pelvis without any acute abnormality but does show degenerative changes.? X-ray of the left knee negative for acute abnormality.? Cervical spine CT negative for any acute fracture subluxation which shows multilevel cervical spondylosis.? Head CT shows small petechial hemorrhage contusion in the hive left frontal lobe as well as generalized atrophy and microangiopathy.? ED did discuss case with Neurology recommending admission and holding aspirin. hospital course: Patient was admitted for acute small left frontal hemorrhagic contusion/focal hemorrhagic contusion of cerebrum. This was likely due to mechanical fall. Patient was unable to tolerate repeat CT, but remained stable. Neurology recommended holding aspirin for 1 week. Patient was also treated for acute urinary tract infection with p.o. Ceftin. Urine culture was negative for history of COPD he was given albuterol as needed. For hypertension was continue amlodipine. For her Alzheimer's dementia with natural progression of disease was continued on Aricept and plan is to discharge to memory unit. Time Spent with Patient Time attestation: Total time managing care of this patient today ____ minutes. Discharge coordination time: Greater than 30 minutes Quality: Safe Use of Opioids Does Pt have an Active Cancer Diagnosis on the Problem List?: No Quality: Stroke Does the patient have a stroke diagnosis?: No Physical Exam Vital Signs: Vital Signs: Last Vital Signs Temp 97.9 F 09/10/22 08:00 Pulse 76 09/10/22 08:00 Resp 20 09/10/22 08:00 BP 123/87 09/10/22 08:00 Pulse Ox 92 09/10/22 08:00 O2 Del Method Room Air 09/10/22 08:00 BMI result Body Mass Index 27.5 Const: Other: Constitutional - r esting in bed in n o distress Anicter ic sclera Cardiova scular - regular r ate rhythm Respira tory - clear to au scultation bilater ally, no wheeze, n o crackles Gastroi ntestinal - abdome n soft nontender b owel sounds audibl e Extremities - no swelling. Skin - Warm/Dry Neurolo gical - Alert & di soriented, speakin g nonsensically, m oving all extremit ies Discharge Plan Discharge Anticipated Discharge Date/Time: 09/10/22 08:38 Patient Disposition: Xfer SNF Discharge Diagnosis: petechial hemmorhage Referrals: [facility] [Other] - 1 Day (STR w/transition to LTC) Chelsea Gonzalez MD [Primary Care Provider] - 1 Week Discharge Medications: Continued multivitamin Tablet 1 tab PO DAILY atorvastatin 20 mg tablet 20 mg PO DAILY cefpodoxime 200 mg tablet 200 mg PO BID donepezil 10 mg tablet 10 mg PO BEDTIME amlodipine 5 mg tablet 5 mg PO DAILY mirtazapine 30 mg tablet 30 mg PO BEDTIME vitamin B complex Capsule 1 cap PO DAILY quetiapine 50 mg tablet 50 mg PO TID@1100,1900,2300 cholecalciferol (vitamin D3) 25 mcg (1,000 unit) Tablet 25 mcg PO DAILY Held aspirin 81 mg Tablet,Delayed Release (Dr/Ec) 81 mg PO DAILY Hold Instructions: Resume on 09/15/22. Discharge Orders: Discharge Order (Routine); Ordered 09/10/22 Ordered By: Tulio Figueroa Diet: NDD2 solids Activity on Discharge: As tolerated Stand Alone Forms: Patient Portal Discharge page Care Plan Goals: manage dementia Health Concerns: dementia Plan of Treatment: hold asa one week Assessment: see above
--- NOTE | 2022-09-10 08:57 | MHC.CM.PN ---
IMM 09/10/22, PT DISCHARGING AT 10AM TO [facility] FOR BLS TRANSPORT
== END 2022-09-10 10:00 | disposition skilled nursing facility (03) | DRG 86 ==
LOC: HO.ED 11:41 → HO.EDOVER 13:46 → HO.IMC 14:00
PROVIDERS: Admitting Provider Physician Assistant; Emergency Provider Emergency Medicine Emergency Medical Services; PCP Internal Medicine; Visit Provider Internal Medicine
DX: S06.320A Contusion and laceration of left cerebrum without loss of consciousness, initial encounter (principal); F02.811 Dementia in other diseases classified elsewhere, unspecified severity, with agitation; N39.0 Urinary tract infection, site not specified; G30.9 Alzheimer's disease, unspecified; Z66 Do not resuscitate; J44.9 Chronic obstructive pulmonary disease, unspecified; W18.30XA Fall on same level, unspecified, initial encounter; R00.1 Bradycardia, unspecified; E78.5 Hyperlipidemia, unspecified; Z20.822 Contact with and (suspected) exposure to COVID-19; Z79.82 Long term (current) use of aspirin; Z79.899 Other long term (current) drug therapy
CPT/HCPCS: 36415; 70450; 71045; 72125; 73521; 73562; 80048; 80076; 81001; 82140; 83690; 83735; 83880; 84443; 84484; 85025; 85610; 87086; 87635; 93005; 94640; 97116; 97162; 97530; 99285; J2060

== ENCOUNTER 2022-09-12 16:17 | Emergency (ER) | payer MEDICARE, MEDICAID, SELFPAY ==
[2022-09-12 16:26] VITALS: BP 130/76; BP 148/63; PULSE 58; PULSE 60; RESP 16; TEMP 36.1; O2SAT 92; O2SAT 97; BMI 28.2
--- NOTE | 2022-09-12 16:34 | PC.NURSE ---
pt APRIL from [facility] memory unit. pt had a fall with head injry requiring admittance to SNF for rehab. pt with increased AMS in past 12 hrs. upon arrival to ED11 pt able to follow simple directions. Neuros intact with KAE strength noted, pt alert to self only.
--- NOTE | 2022-09-12 16:42 | ED.AMS ---
HPI - Altered Mental Status General Chief Complaint: Altered Mental Status Stated Complaint: dementia Time Seen by Provider: 09/12/22 16:38 Source: EMS and old records reviewed Mode of arrival: EMS Limitations: altered mental status History of Present Illness HPI narrative: 71 yo male with history of Alzhemier's dementia, COPD, HLD, HTN with recent admission to [facility] 09/06-09/10 for small left frontal hemorrhagic contusion s/p unwitnessed fall, and UTI who presents back to the ER from [facility] memory unit for evaluation of worsening agitation and aggressive behavior for the last 12 hours. He was just admitted there after his recent discharge. per documentation he has been more agitated the last 2 months. he has been declining and he has been on a wait list for SNF. On arrival to the ER patient is awake and alert, restless, fidgety, mumbling. MD complaint: altered mental status and other (agitation) Onset (ago): hour(s) (12) Timing confirmed by: caregiver Context: other (dementia) Related Data Home Medications Medication Instructions Recorded Confirmed amlodipine 5 mg tablet 5 mg PO DAILY 09/06/22 09/06/22 aspirin 81 mg tablet,delayed 81 mg PO DAILY 09/06/22 09/06/22 release atorvastatin 20 mg tablet 20 mg PO DAILY 09/06/22 09/06/22 cefpodoxime 200 mg tablet 200 mg PO BID 09/06/22 09/06/22 cholecalciferol (vitamin D3) 25 25 mcg PO DAILY 09/06/22 09/06/22 mcg (1,000 unit) tablet donepezil 10 mg tablet 10 mg PO BEDTIME 09/06/22 09/06/22 mirtazapine 30 mg tablet 30 mg PO BEDTIME 09/06/22 09/06/22 multivitamin 1 tab PO DAILY 09/06/22 09/06/22 quetiapine 50 mg tablet 50 mg PO TID@1100,1900,2300 09/06/22 09/06/22 vitamin B complex 1 cap PO DAILY 09/06/22 09/06/22 Allergies Allergy/AdvReac Type Severity Reaction Status Date / Time No Known Allergies Allergy Verified 09/06/22 08:31 Review of Systems Review of Systems: Yes Unobtainable due to mental condition and Unobtainable due to mental status PMFSH Past Medical History Medical History (Updated 09/12/22 @ 21:56 by SHALONDA Holm) Alzheimer's dementia COPD (chronic obstructive pulmonary disease) High cholesterol Hypertension Social History Social History Household Members: Family Unable to assess alcohol history related to: Unknown Alcohol intake: never Patient Tobacco Use Status: Tobacco use Unknown Smoked in Last 30 Days: No Use of substances other than those prescribed or required for medical reasons: No Advance Directives: No Advance Directives Information Provided: Yes service: No Physical Exam ED Vital Signs: Vital Signs - 24 hr 09/12/22 16:26 09/12/22 17:52 09/12/22 20:00 Temperature 96.9 F 97.0 F 97.5 F Pulse Rate 58 74 79 Respiratory Rate 16 16 16 Blood Pressure 148/63 H 149/69 H 130/42 L Pulse Oximetry 97 98 98 Oxygen Delivery Method Room Air Room Air Room Air BMI result Body Mass Index 28.2 Appearance: Alert elderly male, fidgity. No acute distress. Head: normocephalic, atraumatic. Eyes: Pupils equal, round and reactive to light. ENT: Pharynx normal. No tonsillar swelling or exudate. Neck: Normal inspection. Neck supple. CVS: Normal heart rate and rhythm. Pulses normal. Respiratory: No respiratory distress. Breath sounds normal. Abdomen: Soft and nontender. +BS x4 Skin: Skin warm and dry. Normal skin color. Normal skin turgor. No rashes. Extremities: No lower extremity edema. No joint swelling. Neuro/psych: awake and alert, does not follow commands or answers questions, minimally verbal Medications Administered Discontinued Medications Generic Name Dose Route Start Last Admin Trade Name Freq PRN Reason Stop Dose Admin Quetiapine Fumarate 50 mg 09/12/22 18:23 09/12/22 18:35 Quetiapine Fumarate 50 Mg Tablet PO 09/12/22 18:24 50 mg ONCE ONE Administration Medical Decision Making Medical Decision Making MDM Narrative: 71 yo male with history of Alzhemier's dementia, COPD, HLD, HTN with recent admission to [facility] 09/06-09/10 for small left frontal hemorrhagic contusion s/p unwitnessed fall, and UTI who presents back to the ER from locked memory unit for evaluation of worsening agitation and aggressive behavior for the last [address] head without acute bleed. Labs unremarkable. UA without infection. Given seroquel here. He was fed and has been calm. Stable for discharge back to locked dementia unit. Differential Diagnosis Differential Diagnoses: The differential diagnosis associated with the presentation includes worsening brain bleed, worsening dementia, delirium, acute infection Admission/Observation Consideration of admission/observation: Escalation of care including admission/observation considered elderly male w/ AMS, considered admission Lab Data MDM Lab Attestation statement: I reviewed the patient's lab results. no leukocytosis, normal renal function, no metabolic derrangements 09/12/22 17:28 09/12/22 17:28 Labs: Lab Results 09/12/22 09/12/22 09/12/22 Range/Units 17:28 17:28 17:28 WBC 6.9 (4.8-10.8) X10*3/uL RBC 4.59 L (4.60-5.80) X10*6/uL Hgb 13.9 L (14.0-18.0) g/dl Hct 42.5 (42.0-52.0) % MCV 92.6 (80.0-98.0) fL MCH 30.3 (27.0-33.0) pg MCHC 32.7 (31.0-36.0) g/dl RDW 13.2 (11.0-16.0) % Plt Count 287 (160-400) X10*3/uL MPV 10.4 (9.4-12.4) fL Immature Gran % (Auto) 0.6 H (0.0-0.4) % Neut % (Auto) 71.8 (45-73) % Lymph % (Auto) 19.2 L (20-40) % Taylor % (Auto) 6.1 (2-11) % Eos % (Auto) 1.7 (0-4) % Baso % (Auto) 0.6 (0-2) % Lymph # (Auto) 1.3 (1.2-4.9) X10*3/uL Taylor # (Auto) 0.4 (0.1-1.2) X10*3/uL Eos # (Auto) 0.1 (0.0-0.4) X10*3/uL Baso # (Auto) 0.0 (0.0-0.2) X10*3/uL Abs Immat Gran (auto) 0.04 H (0.00-0.03) X10*3/uL Absolute Neuts (auto) 5.0 (2.0-8.3) x10*3/uL Absolute Nucleated RBC 0.000 (0.0-0.012) X10*3/uL Nucleated RBC % (auto) 0.0 (0.0-0.2) /100WBC Sodium 143 (135-145) mmol/L Potassium 3.8 (3.3-5.1) mmol/L Chloride 107 (96-108) mmol/L Carbon Dioxide 24 (22-29) mmol/L Anion Gap 16 (12-20) BUN 10 (9-16) mg/dL Creatinine 0.87 (0.5-1.4) mg/dL Estim Creat Clear Calc 74.9 Estimated GFR > 60 Random Glucose 118 H (60-115) mg/dL Calcium 9.8 (8.4-10.2) mg/dL Magnesium 2.4 (1.6-2.6) mg/dL Total Bilirubin 0.5 (0.0-1.0) mg/dL Direct Bilirubin 0.2 (0.0-0.5) mg/dL AST 24 (5-37) U/L ALT 28 (0-40) U/L Alkaline Phosphatase 96 (39-117) U/L Total Protein 7.0 (6.5-8.0) g/dL Albumin 4.3 (3.5-5.0) g/dL TSH 2.09 (0.32-4.0) uIU/mL Urine Color Urine Appearance Urine pH (5.0-9.0) Ur Specific [place] (1.005-1.025) Urine Protein (Neg-Trace) mg/dL Urine Glucose (UA) (Negative) mg/dL Urine Ketones (Negative) mg/dL Urine Blood (Negative) Urine Nitrite (Negative) Ur Leukocyte Esterase (Negative) Urine RBC (0-2) /HPF Urine WBC (0-5) /HPF Ur Squamous Epith Cells (0-2) /HPF Urine Bacteria (None Seen) Hyaline Casts (0-2) /LPF 09/12/22 Range/Units 20:08 WBC (4.8-10.8) X10*3/uL RBC (4.60-5.80) X10*6/uL Hgb (14.0-18.0) g/dl Hct (42.0-52.0) % MCV (80.0-98.0) fL MCH (27.0-33.0) pg MCHC (31.0-36.0) g/dl RDW (11.0-16.0) % Plt Count (160-400) X10*3/uL MPV (9.4-12.4) fL Immature Gran % (Auto) (0.0-0.4) % Neut % (Auto) (45-73) % Lymph % (Auto) (20-40) % Taylor % (Auto) (2-11) % Eos % (Auto) (0-4) % Baso % (Auto) (0-2) % Lymph # (Auto) (1.2-4.9) X10*3/uL Taylor # (Auto) (0.1-1.2) X10*3/uL Eos # (Auto) (0.0-0.4) X10*3/uL Baso # (Auto) (0.0-0.2) X10*3/uL Abs Immat Gran (auto) (0.00-0.03) X10*3/uL Absolute Neuts (auto) (2.0-8.3) x10*3/uL Absolute Nucleated RBC (0.0-0.012) X10*3/uL Nucleated RBC % (auto) (0.0-0.2) /100WBC Sodium (135-145) mmol/L Potassium (3.3-5.1) mmol/L Chloride (96-108) mmol/L Carbon Dioxide (22-29) mmol/L Anion Gap (12-20) BUN (9-16) mg/dL Creatinine (0.5-1.4) mg/dL Estim Creat Clear Calc Estimated GFR Random Glucose (60-115) mg/dL Calcium (8.4-10.2) mg/dL Magnesium (1.6-2.6) mg/dL Total Bilirubin (0.0-1.0) mg/dL Direct Bilirubin (0.0-0.5) mg/dL AST (5-37) U/L ALT (0-40) U/L Alkaline Phosphatase (39-117) U/L Total Protein (6.5-8.0) g/dL Albumin (3.5-5.0) g/dL TSH (0.32-4.0) uIU/mL Urine Color Yellow Urine Appearance Clear Urine pH 7.0 (5.0-9.0) Ur Specific [place] <= 1.005 (1.005-1.025) Urine Protein Negative (Neg-Trace) mg/dL Urine Glucose (UA) Negative (Negative) mg/dL Urine Ketones Negative (Negative) mg/dL Urine Blood Negative (Negative) Urine Nitrite Negative (Negative) Ur Leukocyte Esterase Trace H (Negative) Urine RBC 0-2 (0-2) /HPF Urine WBC 0-5 (0-5) /HPF Ur Squamous Epith Cells 0-2 (0-2) /HPF Urine Bacteria None Seen (None Seen) Hyaline Casts 0-2 (0-2) /LPF Independent Interpretation I performed an independent interpretation of an: CT Scan Interpretation: ct head without acute bleed or edema, cerebral volume loss, agree w/ radiology read Radiology Impression Discussion of test interpretation with radiology: I have reviewed the radiologist's reading. Radiologist Impression: CT/CT head/brain wo IV con IMPRESSION: 1.? No acute intracranial abnormality. 2.? A 1.3 cm soft tissue density in the left nasal cavity, possibly sinonasal polyp, recommend correlation with direct inspection. Independent Historian Clinical information obtained from an independent historian. History obtained from or confirmed by: EMS External Record Review External record reviewed: Inpatient record, Outpatient record, Prior outpatient labs and Prior outpatient radiology Prescription Management I considered prescription management with: Other (antipsychotic) Chronic Conditions Patient?s care impacted by: Other (dementia) Social Determinants Patient?s care significantly limited by Social Determinants of Health including: Other Social Determinant of Health Critical Care Time Critical Care Time Critical Care Time: No Discharge Plan Discharge Clinical Impression: Alzheimer's dementia Patient Disposition: Xfer SNF Transfer Details: [facility] Instructions: Alzheimer Disease (DC) Additional Instructions: CT scan was unremarkable. Labs unremarkable. Urine test negative for infection. Recommend PRN Seroquel for agitation. If you develop new or worsening symptoms call 911 or come back to the ER for further evaluation. Prescriptions: No Action multivitamin Tablet 1 tab PO DAILY atorvastatin 20 mg tablet 20 mg PO DAILY cefpodoxime 200 mg tablet 200 mg PO BID donepezil 10 mg tablet 10 mg PO BEDTIME amlodipine 5 mg tablet 5 mg PO DAILY aspirin 81 mg Tablet,Delayed Release (Dr/Ec) 81 mg PO DAILY Hold Instructions: Resume on 09/15/22. mirtazapine 30 mg tablet 30 mg PO BEDTIME vitamin B complex Capsule 1 cap PO DAILY quetiapine 50 mg tablet 50 mg PO TID@1100,1900,2300 cholecalciferol (vitamin D3) 25 mcg (1,000 unit) Tablet 25 mcg PO DAILY Referrals: Edmundo Salazar MD [Primary Care Provider] - (worsening dementia w/ behavior disturbance)
--- NOTE | 2022-09-12 17:33 | MHC.EDTECH ---
PATIENT CAME IN VIA EMS ,PATIENT WAS INCONTINENT OF URINE CARE GIVEN BEDDING CHANGE ,BLOOD DRAWN AND SENT TO LAB ,PT IS VERY RESTLESS AT THIS TIME ,RN AWARE .
--- NOTE | 2022-09-12 17:38 | PC.NURSE ---
Daughter -Selena Morales (son) [phone] home line
[2022-09-12 17:52] VITALS: BP 149/69; PULSE 74; RESP 16; TEMP 36.1; O2SAT 98
--- NOTE | 2022-09-12 18:35 | PC.NURSE ---
pt agitated, difficulty following directions. attempting to get out of bed. [facility]
[2022-09-12 20:00] VITALS: BP 130/42; PULSE 79; RESP 16; TEMP 36.4; O2SAT 98
--- NOTE | 2022-09-12 20:06 | PC.NURSE ---
[facility] [place] [facility], reposition for comfort
--- NOTE | 2022-09-12 20:34 | MHC.EDTECH ---
PT WAS INCONTINENT OF URINE ,CARE GIVEN BEDDING CHANGE ,PATIENT WAS A 1:1 FEED ATE A PUDDING AND DRANK 240 ML MILK ,[place] CATHETER IN PLACE ,PATIENT GROIN AND SCROTOM IS RED AND EXCORIATED ,BARRIER CREAM APPLY ,PT CLOTHING IS BEHIND HIS BED ,URINE SAMPLE COLLECTED AND SENT TO LAB .
[2022-09-12 22:00] VITALS: BP 114/70; PULSE 72; RESP 16; TEMP 36.7; O2SAT 97
--- NOTE | 2022-09-12 22:29 | PC.NURSE ---
verbal report given to Drake OLIVARES at [facility]
== END 2022-09-12 23:13 | disposition skilled nursing facility (03) ==
PROVIDERS: Emergency Provider Internal Medicine; PCP Hospitalist
DX: G30.9 Alzheimer's disease, unspecified (principal); F02.80 Dementia in other diseases classified elsewhere, unspecified severity, without behavioral disturbance, psychotic disturbance, mood disturbance, and anxiety; I10 Essential (primary) hypertension; E78.5 Hyperlipidemia, unspecified; Z79.82 Long term (current) use of aspirin; Z79.899 Other long term (current) drug therapy
CPT/HCPCS: 36415; 51701; 70450; 80048; 80076; 81001; 83735; 84443; 85025; 99284; 99285

== ENCOUNTER 2022-09-25 09:08 | Emergency (ER) | payer MEDICARE, MEDICAID, SELFPAY ==
--- NOTE | ~2022-09-25 | CT_ITS ---
EXAMINATION: CT CERVICAL SPINE WITHOUT CONTRAST CLINICAL INFORMATION: Fall. Head trauma. COMPARISON: Previous cervical spine CT 09/06/2022 TECHNIQUE: Axial images through the cervical spine without contrast. Sagittal and coronal reconstructions on the technologist workstation were performed. Patient dose 6 0 9 mg/cm This CT examination was performed using dose optimization techniques as appropriate, variously including the following: *Automated exposure control *Adjustment of mA and/or kV according to patient size (this includes techniques or standardized protocols for targeted exams where dose is matched to indication/reason for exam; i.e. extremities or head) *Use of iterative reconstruction technique DLP: 609 mGy-cm FINDINGS: Bone alignment is normal. No fracture or dislocation. Multilevel degenerative spondylosis and degenerative disc disease at C5-C6, C6-C7 and C7-T1. There are degenerative changes at the C1 dens articulation. There is bilateral multilevel facet arthritis, left greater than right. There are degenerative changes of the visualized proximal thoracic spine. Prevertebral soft tissues are normal. There is bilateral carotid calcification. Lung apices are clear. CT/CT cervical spine wo IV con IMPRESSION: Degenerative changes. No fracture or dislocation. Fleischner guidelines were followed.
--- NOTE | ~2022-09-25 | CT_ITS ---
EXAMINATION: CT HEAD WITHOUT CONTRAST CLINICAL INFORMATION: Head strike. Fall. COMPARISON: 09/12/2022 TECHNIQUE: Contiguous axial imaging was performed from the skull base to vertex without intravenous contrast. This CT examination was performed using dose optimization techniques as appropriate, variously including the following: * Automated exposure control * Adjustment of mA and/or kV according to patient size (this includes techniques or standardized protocols for targeted exams where dose is matched to indication/reason for exam; i.e. extremities or head) Use of iterative reconstruction technique DLP: 1563 mGy-cm in conjunction with cervical spine CT. FINDINGS: There is no evidence of acute intracranial hemorrhage or territorial infarction. No abnormal mass effect or midline shift is seen. Bauman to white matter differentiation is well preserved. No extra-axial fluid collections are identified. No hydrocephalus. Proportional prominence of the ventricles and sulcal spaces is consistent with moderate volume loss. Patchy periventricular and deep white matter hypoattenuation is consistent with mild small vessel ischemic changes. The osseous structures and soft tissues are normal. Partially opacified left ethmoid air cells. The mastoid air cells and visualized portions of the paranasal sinuses are otherwise well aerated. CT/CT head/brain wo IV con IMPRESSION: No acute intracranial pathology.
[2022-09-25 09:17] VITALS: BP 130/84; PULSE 70; O2SAT 94
[2022-09-25 09:32] VITALS: BP 112/70; PULSE 62; RESP 16; TEMP 36.3; O2SAT 99; BMI 25.9
[2022-09-25 09:34] VITALS: BP 130/84; PULSE 70; RESP 16; TEMP 36.3; O2SAT 94
--- NOTE | 2022-09-25 12:32 | ED_ITS ---
HPI - Fall General Chief Complaint: Fall Stated Complaint: Fall, SOB, Head pain, combative dementia per EMS Time Seen by Provider: 09/25/22 12:26 Source: EMS Mode of arrival: EMS Limitations: other (Dementia) History of Present Illness HPI Narrative: This is a 71 years old the [facility] presented to the emergency department after a fall. He has history of fall risk, he has a present that indicate fall risk. He is DNR DNI do not transfer to the hospital less comfortable. He is unable to give any history because of his his dementia. He is awake and alert and moved all the extremity. He has an abrasion and forehead complaint: fall Onset (ago): hour(s) (5) Fall from: standing Fall witnessed: no Place fall occurred: [facility] Loss of consciousness: none Prolonged down time: no Context: tripped/slipped Related Data Home Medications Medication Instructions Recorded Confirmed amlodipine 5 mg tablet 5 mg PO DAILY 09/06/22 09/06/22 aspirin 81 mg tablet,delayed 81 mg PO DAILY 09/06/22 09/06/22 release atorvastatin 20 mg tablet 20 mg PO DAILY 09/06/22 09/06/22 cefpodoxime 200 mg tablet 200 mg PO BID 09/06/22 09/06/22 cholecalciferol (vitamin D3) 25 25 mcg PO DAILY 09/06/22 09/06/22 mcg (1,000 unit) tablet donepezil 10 mg tablet 10 mg PO BEDTIME 09/06/22 09/06/22 mirtazapine 30 mg tablet 30 mg PO BEDTIME 09/06/22 09/06/22 multivitamin 1 tab PO DAILY 09/06/22 09/06/22 quetiapine 50 mg tablet 50 mg PO TID@1100,1900,2300 09/06/22 09/06/22 vitamin B complex 1 cap PO DAILY 09/06/22 09/06/22 Allergies Allergy/AdvReac Type Severity Reaction Status Date / Time No Known Allergies Allergy Verified 09/06/22 08:31 Review of Systems Review of Systems: Yes Unobtainable due to mental status PMFSH Past Medical History Attestation statement: The following information was validated with the patient. Medical History Alzheimer's dementia COPD (chronic obstructive pulmonary disease) High cholesterol Hypertension Social History Social History Household Members: Family Unable to assess alcohol history related to: Unknown Alcohol intake: never Patient Tobacco Use Status: Tobacco use Unknown Advance Directives: Yes Advance Directives on File: Yes Advance Directives Date on File: 09/11/22 service: No Physical Exam Vital Signs: Vital Signs: Last Vital Signs Temp 97.3 F 09/25/22 09:34 Pulse 70 09/25/22 09:34 Resp 16 09/25/22 09:34 BP 130/84 09/25/22 09:34 Pulse Ox 94 09/25/22 09:34 O2 Del Method Room Air 09/25/22 09:32 BMI result Body Mass Index 25.9 His vital sign stable his O2 sat on room air he is 99%, he is normotensive in not acute distress Const: General: no acute distress HEENT: Other: Has a very small abrasion in the forehead Head: Yes other (Small abrasion left for a) Face and sinus: Yes normal facial exam Mouth: Normal oral and palatal mucosa present Neck: Neck: Yes normal visual inspection Chest: Chest palpation & inspection: normal inspection of the chest Resp: Effort & Inspection: normal respiratory effort Auscultation: clear to auscultation bilaterally Cardio: Jugular venous distension: no JVD Rate: regular rate Rhythm: regular rhythm GI: Inspection: Yes normal to inspection Palpation (GI): Soft to palpation, not firm and nontender Auscultation: normal bowel sounds Neuro: Other: He is awake and alert no focal Medical Decision Making Medical Decision Making MDM Narrative: This is a patient was history of multiple fall in the past fell again head CT C- spine were done he has no acute abnormality in the imaging. His vital signs stable. I do not think this patient is blood work. Differential Diagnosis Differential Diagnoses: The differential diagnosis associated with the presentation includes Subdural hematoma/epidural hematoma/cervical fracture Admission/Observation Consideration of admission/observation: Escalation of care including admission/observation considered Independent Interpretation I performed an independent interpretation of an: CT Scan Interpretation: I reviewed independently with interpreted as well the imaging agree with the radiology report Radiology Impression Discussion of test interpretation with radiology: I have reviewed the radiologist's reading. External Record Review External record reviewed: Other (I reviewed the [facility] a paper) Chronic Conditions Patient?s care impacted by: Other (Dementia) Discharge Plan Discharge Clinical Impression: Fall Patient Disposition: Xfer SNF Instructions: Fall Prevention (ED) Prescriptions: No Action multivitamin Tablet 1 tab PO DAILY atorvastatin 20 mg tablet 20 mg PO DAILY cefpodoxime 200 mg tablet 200 mg PO BID donepezil 10 mg tablet 10 mg PO BEDTIME amlodipine 5 mg tablet 5 mg PO DAILY aspirin 81 mg Tablet,Delayed Release (Dr/Ec) 81 mg PO DAILY Hold Instructions: Resume on 09/15/22. mirtazapine 30 mg tablet 30 mg PO BEDTIME vitamin B complex Capsule 1 cap PO DAILY quetiapine 50 mg tablet 50 mg PO TID@1100,1900,2300 cholecalciferol (vitamin D3) 25 mcg (1,000 unit) Tablet 25 mcg PO DAILY Referrals: Edmundo Salazar MD [Primary Care Provider] - 3 days Interventions: ED Discharge Assessment Last Done: 09/25/22 14:35 Discharge Date/Time: 09/25/22 14:36
--- NOTE | 2022-09-25 12:36 | PC.NURSE ---
Plan to send back to Dr Hunter Amos to bedside. CT scan WNL. Pt asleep, awakes easily, agitated with care
--- NOTE | 2022-09-25 14:03 | PC.NURSE ---
[facility].
== END 2022-09-25 14:36 | disposition skilled nursing facility (03) ==
PROVIDERS: Emergency Provider Emergency Medicine; PCP Hospitalist
DX: S00.81XA Abrasion of other part of head, initial encounter (principal); W18.30XA Fall on same level, unspecified, initial encounter; I10 Essential (primary) hypertension; E78.5 Hyperlipidemia, unspecified; F03.90 Unspecified dementia, unspecified severity, without behavioral disturbance, psychotic disturbance, mood disturbance, and anxiety; Z91.81 History of falling; Y93.9 Activity, unspecified; Y92.129 Unspecified place in nursing home as the place of occurrence of the external cause; Y99.9 Unspecified external cause status; Z79.82 Long term (current) use of aspirin; Z79.899 Other long term (current) drug therapy
CPT/HCPCS: 70450; 72125; 99284